=== PATIENT | male | born 1995 | race Two or more races ===

== ENCOUNTER 2021-05-31 14:03 | Outpatient (CLI) | payer OTHER | END 2021-05-31 14:32 | disposition home or self-care (01) | LOC: SONOGRAMA 14:03 | PROVIDERS: ATTEND Urology | DX: D49.2 Neoplasm of unspecified behavior of bone, soft tissue, and skin (principal) ==

== ENCOUNTER 2021-06-13 10:25 | Day surgery (SDC) | payer OTHER ==
[2021-06-13] MEDS ORDERED: ULTRACET PO (14:04)
[2021-06-13] MEDS ORDERED: CIPRO500 MG PO (14:05)
== END 2021-06-13 16:30 | disposition home or self-care (01) ==
LOC: CIR.AMB 10:25
PROVIDERS: ATTEND Surgery
DX: D17.0 Benign lipomatous neoplasm of skin and subcutaneous tissue of head, face and neck (principal); Z20.822 Contact with and (suspected) exposure to COVID-19